=== PATIENT | male | born 1995 | race Two or more races ===

== ENCOUNTER 2018-08-08 14:53 | Emergency (ER) | payer BC, OTHER ==
[~2018-08-08] VITALS: Ht 180.3 cm; Wt 81.2 kg
--- NOTE | 2018-08-08 15:16 | NUR ---
Dr Martinez seen and examined the pt.
--- NOTE | 2018-08-08 15:35 | NUR ---
Patient discharged to home in stable conditon. Written and verbal after care instructions given. Patient verbalizes understanding of instructions.
[2018-08-08 15:36] VITALS: BP 119/65
== END 2018-08-08 15:36 | disposition home or self-care (01) ==
LOC: ER 14:53
DX: J02.9 Acute pharyngitis, unspecified (principal)
CPT/HCPCS: A4663

== ENCOUNTER 2025-08-13 16:34 | Emergency (ER) | payer BC, OTHER ==
[~2025-08-13] VITALS: Ht 177.8 cm; Wt 81.6 kg
[2025-08-13 16:39] VITALS: BP 118/67
[2025-08-13 18:13] VITALS: BP 118/67; TEMP 98; O2SAT 98
== END 2025-08-13 18:14 | disposition home or self-care (01) ==
LOC: ER 16:42
DX: N45.1 Epididymitis (principal); N50.811 Right testicular pain; Z88.7 Allergy status to serum and vaccine
CPT/HCPCS: 76870; A4606; A4663